=== PATIENT | female | born 1980 | race Hispanic/Latino ===

== ENCOUNTER 2020-06-13 08:24 | Emergency (ER) | payer SELFPAY ==
[~2020-06-13] VITALS: Ht 162.6 cm; Wt 95.3 kg
--- NOTE | 2020-06-13 09:53 | Emergency Department Note ---
History of Present Illnes History of Present Illness Chief Complaint: General Medicine Complaints History of Present Illness This is a 39 year old female . Chief Complaint Comment Pt arrived to the ER with c/o nasal drainage that causes her to get SOB her chest feels tight and states hard to breathe x1 week. Denies any fever reports productive cough with clear thick mucus. Pt reports taking Alegra D states thinks it might be her allergies but states not helping. Historian: Patient Arrival Mode: Car Past Medical/Family History Physician Review I have reviewed the patient's past medical and family history. Any updates have been documented here. Past Medical History Recent Fever: No Clinical Suspicion of Infectio: No New/Unexplained Change in Ment: No Past Medical History: None Past Surgical History: None Social History Physically hurt or threatened: No Physical Exam Related Data Allergies: Coded Allergies: No Known Allergies (Unverified , 06/13/20) Triage Vital Signs Vital Signs Date Time Temp Pulse Resp B/P (MAP) Pulse Ox O2 Delivery O2 Flow Rate FiO2 06/13/20 08:51 98.5 82 17 114/84 100 Room Air Physical Exam CONSTITUTIONAL HENT EYES NECK PULMONARY CARDIOVASCULAR GASTROINTESTINAL GENITOURINARY SKIN MUSCULOSKELETAL NEUROLOGICAL PSYCHOLOGICAL Results Laboratory Laboratory Laboratory Tests Test 06/13/20 09:00 Urine Test Negative (NEGATIVE) Assessment & Plan Last Vital Signs Date Time Temp Pulse Resp B/P (MAP) Pulse Ox O2 Delivery O2 Flow Rate FiO2 06/13/20 08:51 98.5 82 17 114/84 100 Room Air LAQUITA DORSEY DO Jun 13, 2020 09:53
--- NOTE | 2020-06-13 11:30 | NUR ---
Radiology attempted to locate patient for test. Unable to find the patient in the lobby. Lobby restroom checked and the patient was not located.
--- NOTE | 2020-06-13 12:30 | NUR ---
Attempted to call patient at 1200 and 1230. No answer.
== END 2020-06-13 13:12 | disposition left against medical advice (07) ==
LOC: ER 09:58
DX: R06.02 Shortness of breath (principal)
CPT/HCPCS: 81025